=== PATIENT | male | born 1960 | race Caucasian/White ===

== ENCOUNTER → 2016-08-28 | Outpatient (CLI) | payer MEDICAID ==
[~2016-08-28] MED LIST: ALBUTEROL INH; ALBUTEROL0.83 MG/ML IH; AMOXICILLIN 8751 TAB PO; CIPRO 500MG TA500 MG PO; FLAGYL500 MG PO; INFANTS AQU400 IU/ML; KEPPRA 500MG500 MG PO; KEPPRA XR500 MG PO; MIRALAX PA17 GM/Dose PO; NORCO 325 MG-101 TAB PO; NORCO 325 MG-51 TAB PO; PEPCID 20MG TAB20 MG PO; PHENERGAN 25 TA25 MG PO; PLAVIX 75MG TAB75 MG PO; POTASSIUM PO; PROMETHAZINE12.5 M5 PO; REMERON SOLTAB15 MG PO; REMERON30 MG PO; ROXANOL 20MG20 MG/ML PO; ULTRAM 50MG TAB50 MG PO; VENTOLIN0.09 MG IH; VITAMIN D31000 IU PO; XANAX 1MG1 MG PO
== END ==
LOC: COL.PUL 09:20
DX: R06.02 Shortness of breath (principal); F17.200 Nicotine dependence, unspecified, uncomplicated

== ENCOUNTER → 2017-01-31 | Outpatient (CLI) | payer MEDICAID | LOC: COL.RAD 09:12 | DX: C34.90 Malignant neoplasm of unspecified part of unspecified bronchus or lung (principal); J43.9 Emphysema, unspecified; K76.9 Liver disease, unspecified; K57.30 Diverticulosis of large intestine without perforation or abscess without bleeding; K63.89 Other specified diseases of intestine; E27.8 Other specified disorders of adrenal gland; I70.0 Atherosclerosis of aorta; R91.8 Other nonspecific abnormal finding of lung field | CPT/HCPCS: Q9967 ==

== ENCOUNTER 2017-03-27 19:00 | Inpatient (IN) | payer MEDICARE, MEDICAID ==
[~2017-03-27] VITALS: Ht 170.2 cm; Wt 63.5 kg
[~2017-03-27 19:00] MED LIST changes: -AMOXICILLIN 8751 TAB PO; -NORCO 325 MG-101 TAB PO; -PHENERGAN 25 TA25 MG PO; -ROXANOL 20MG20 MG/ML PO
[2017-03-27 19:16] LABS: BASO % 0.9 % (0.0-2.0); EOS # 0.1 (0.0-0.7); EOS % 1.9 % (0-4.0); GRAN # 2.4 (1.4-6.5); GRAN % 56.2 % (42.2-75.2); HEMATOCRIT 40.4 % (42.0-52.0); HEMOGLOBIN 13.4 g/dl (13.5-18.0); LYMPH # 1.5 (1.2-3.4); LYMPH % 34.9 % (20.0-51.0); MEAN CELL VOLUME 83 fl (80.0-100.0); MEAN CORPUSCULAR HEMOGLOBIN 28 pg (27.0-31.0); MEAN CORPUSCULAR HGB CONC 33 g/dl (33.0-37.0); MEAN PLATELET VOLUME 9.2 fl (7.4-10.4); MONO # 0.3 (0.1-0.6); MONO % 5.9 % (1.7-9.3); PLATELET COUNT 218 K/mm3 (130-400); RED BLOOD COUNT 4.85 M/mm3 (4.20-5.60); REDCELL DISTRIBUTION WIDTH-CV 13.7 % (11.5-14.5); WHITE BLOOD COUNT 4.2 K/mm3 (4.8-10.8)
[2017-03-27 19:21] LABS: INR 1.1 (0.8-3.0); PROTHROMBIN TIME 11.9 SECONDS (9.7-12.8)
[2017-03-27 19:23] LABS: PARTIAL THROMBOPLASTIN TIME 31.7 SECONDS (26.0-37.0)
[2017-03-27] MEDS ORDERED: AMOXICILLIN 8751 TAB PO (19:29)
[2017-03-27] MEDS ORDERED: NORCO 325 MG-101 TAB PO (19:30)
[2017-03-27] MEDS ORDERED: PHENERGAN 25 TA25 MG PO (19:30)
[2017-03-27 19:33] LABS: ALANINE AMINOTRANSFERASE 22 U/L (21-72); ALBUMIN 3.6 gm/dL (3.5-5.0); ALKALINE PHOSPHATASE 58 U/L (50-136); ANION GAP 10 mmol/L (7-16); BILIRUBIN,TOTAL 0.5 mg/dL (0.0-1.0); BLOOD UREA NITROGEN 10 mg/dL (9-20); CALCIUM 8.7 mg/dL (8.4-10.2); CARBON DIOXIDE 25 mmol/L (22-30); CHLORIDE 100 mmol/L (98-107); CREATININE, serum 0.88 mg/dL (0.66-1.25); GLUCOSE 98 mg/dL (74-106); POTASSIUM 3.9 mmol/L (3.4-5.0); SODIUM 134 mmol/L (137-145); TOTAL PROTEIN 6.6 gm/dL (6.4-8.2)
[2017-03-27 19:44] LABS: B-TYPE NATRIURETIC PEPTIDE 231 pg/mL (0-125)
[2017-03-27 19:48] LABS: TROPONIN-I < 0.012 ng/mL (0.000-0.034)
[2017-03-27 20:04] LABS: PHOSPHOROUS 4.3 mg/dL (2.5-4.5)
[2017-03-28] VITALS (157 sets, daily range): BP systolic 134–156; BP diastolic 71–92; PULSE 69–90; TEMP 98.1–98.7; O2SAT 92–100
[2017-03-28 06:30] LABS: PH 6 (5-8); SQUAMOUS EPITHELIAL None Seen /hpf; URINE APPEARANCE Clear; URINE BACTERIA None Seen /hpf; URINE BILIRUBIN Negative (NEGATIVE); URINE BLOOD Negative (NEGATIVE); URINE COLOR Yellow; URINE GLUCOSE Negative (NEGATIVE); URINE KETONE Trace (NEGATIVE); URINE RBC 0-2 /hpf; URINE UROBILINOGEN Negative (NEGATIVE); URINE WBC 0-2 /hpf
[2017-03-29 04:01] VITALS: BP 130/71; PULSE 88; TEMP 98.1
[2017-03-29 04:30] LABS: BASO % 0.7 % (0.0-2.0); EOS # 0.1 (0.0-0.7); EOS % 1.8 % (0-4.0); GRAN # 2.3 (1.4-6.5); GRAN % 51.4 % (42.2-75.2); HEMATOCRIT 39.9 % (42.0-52.0); HEMOGLOBIN 13.5 g/dl (13.5-18.0); LYMPH # 1.8 (1.2-3.4); LYMPH % 39.2 % (20.0-51.0); MEAN CELL VOLUME 82 fl (80.0-100.0); MEAN CORPUSCULAR HEMOGLOBIN 28 pg (27.0-31.0); MEAN CORPUSCULAR HGB CONC 34 g/dl (33.0-37.0); MEAN PLATELET VOLUME 9.2 fl (7.4-10.4); MONO # 0.3 (0.1-0.6); MONO % 6.7 % (1.7-9.3); PLATELET COUNT 212 K/mm3 (130-400); RED BLOOD COUNT 4.89 M/mm3 (4.20-5.60); REDCELL DISTRIBUTION WIDTH-CV 13.7 % (11.5-14.5); WHITE BLOOD COUNT 4.5 K/mm3 (4.8-10.8)
[2017-03-29 04:39] LABS: CALCIUM 8.5 mg/dL (8.4-10.2); CREATININE, serum 0.65 mg/dL (0.66-1.25); POTASSIUM 3.5 mmol/L (3.4-5.0)
[2017-03-29 08:23] VITALS: BP 161/92; PULSE 100; TEMP 98
[2017-03-29] MEDS ORDERED: ROXANOL 20MG20 MG/ML PO (10:36)
== END 2017-03-29 11:24 | disposition hospice, home (50) | DRG 641 ==
LOC: COL.ER 19:00 → SURG 23:59 → ICU 03-28 12:11
PROVIDERS: Emergency Medicine; Nurse Practitioner Family
DX: E86.0 Dehydration (principal); C34.31 Malignant neoplasm of lower lobe, right bronchus or lung; K57.32 Diverticulitis of large intestine without perforation or abscess without bleeding; R64 Cachexia; Z51.5 Encounter for palliative care; Z66 Do not resuscitate; R45.851 Suicidal ideations; J98.11 Atelectasis; I69.398 Other sequelae of cerebral infarction; J44.9 Chronic obstructive pulmonary disease, unspecified; F17.210 Nicotine dependence, cigarettes, uncomplicated; F32.9 Major depressive disorder, single episode, unspecified
CPT/HCPCS: 90791-AI; 99223-AI; 99239; A9585; G8978-GP; G8979-GP; G8987-GO; G8988-GO; G8996-GN; G8997-GN; J1650; J2405; J3010; J3411; J7030; Q9967